=== PATIENT | male | born 1985 | race Hispanic/Latino ===

== ENCOUNTER 2019-01-11 08:49 | Emergency (ER) | payer OTHER, SELFPAY ==
[2019-01-11] MEDS ORDERED: KETOROLAC 30 MG/ML INJ ONE (09:15)
[2019-01-11] MEDS ORDERED: dexAMETHasone 10 MG/ML VIAL ONE (09:15)
[2019-01-11] MEDS ORDERED: METHOCARBAMOL 1,000 MG in NA CHLORIDE 0.9% 100 ML IV ONE (09:30)
--- NOTE | 2019-01-11 10:31 | ER ---
Nurse's Notes [facility] Name: Lorenzo Daniel Age: 33 yrs Sex: Male : 1985 Arrival Date: 01/11/2019 Time: 08:50 Bed 5 Private MD: Diagnosis: Low back pain Presentation: 01/11 08:50 Presenting complaint: Patient states: L low back pain x 1 week. Became worse when ss patient was getting out of car at work this morning. Transition of care: patient was not received from another setting of care. Onset of symptoms was January 14, 2019. Risk Assessment: Do you want to hurt yourself or someone else? Patient reports no desire to harm self or others. Initial Sepsis Screen: Does the patient meet any 2 criteria? No. Patient's initial sepsis screen is negative. Does the patient have a suspected source of infection? No. Patient's initial sepsis screen is negative. Care prior to arrival: None. 08:50 Acuity: EZEKIEL 4 08:50 Method Of Arrival: EMS: [facility] [place] Historical: - Allergies: 08:52 No Known Allergies; ss - Home Meds: 08:52 None [Active]; ss - PMHx: 08:52 None; ss - PSHx: 08:52 None; ss - Immunization history:: Adult Immunizations up to date. - Social history:: Smoking status: Patient/guardian denies using tobacco. - Ebola Screening: : Patient denies exposure to infectious person Patient denies travel to an Ebola-affected area in the 21 days before illness onset. Screenin:38 Abuse screen: Denies threats or abuse. Denies injuries from another. Nutritional jl7 screening: No deficits noted. Tuberculosis screening: No symptoms or risk factors identified. Fall Risk IV access (20 points). Total Narvaez Fall Scale indicates No Risk (0-24 pts). Assessment: 09:00 General: Appears in no apparent distress. uncomfortable, Behavior is calm, cooperative, jl7 appropriate for age. Pain: Complains of pain in left low back Pain radiates to left leg Pain currently is 1 out of 10 on a pain scale. at worst was 10 out of 10 on a pain scale. Quality of pain is described as sharp, shooting, Pain began suddenly, Is continuous. Neuro: Level of Consciousness is awake, alert, obeys commands, Oriented to person, place, time, situation. Cardiovascular: Patient's skin is warm and dry. Respiratory: Airway is patent Respiratory effort is even, unlabored, Respiratory pattern is regular, symmetrical. Derm: Skin is pink, warm \T\ dry. Musculoskeletal: Range of motion: limited in left hip. 10:00 Reassessment: Patient appears in no apparent distress at this time. Patient and/or jl7 family updated on plan of care and expected duration. Pain level reassessed. Patient is alert, oriented x 3, equal unlabored respirations, skin warm/dry/pink. Patient states feeling better. Patient states symptoms have improved. Vital Signs: 08:52 BP 117 / 87; Pulse 84; Resp 16; Temp 98.5(TE); Pulse Ox 100% on R/A; Weight 81.65 kg; ss Height 6 ft. 2 in. (187.96 cm); Pain 2/10; 09:38 BP 128 / 85; Pulse 78; Resp 16 S; Pulse Ox 100% on R/A; jl7 10:53 BP 124 / 82; Pulse 77; Resp 16 S; Pulse Ox 99% on R/A; jl7 08:52 Body Mass Index 23.11 (81.65 kg, 187.96 cm) ED Course: 08:50 Patient arrived in ED. ss 08:51 Triage completed. ss 08:52 Prateek Brush PA is PHCP. jr8 08:52 Rigoberto Quick MD is Attending Physician. jr8 08:52 Arm band placed on right wrist. ss 08:53 Aquilino Bernal MD is Attending Physician. jr8 09:04 Kizzy Gorman RN is Primary Nurse. jl7 09:38 Patient has correct armband on for positive identification. Bed in low position. Call jl7 light in reach. Side rails up X 1. Pulse ox on. NIBP on. 09:38 Inserted saline lock: 22 gauge in right antecubital area, using aseptic technique. jl7 10:53 No provider procedures requiring assistance completed. IV discontinued, intact, ss bleeding controlled, No redness/swelling at site. Pressure dressing applied. Administered Medications: 09:23 Drug: TORadol - Ketorolac 15 mg Route: IVP; Site: right antecubital; jl7 09:45 Follow up: Response: No adverse reaction; Pain is decreased 7 09:25 Drug: Decadron - Dexamethasone 10 mg Route: IVP; Site: right antecubital; 7 09:45 Follow up: Response: No adverse reaction 7 09:35 Drug: Robaxin 1 grams Route: IVPB; Infused Over: 1 hrs; Site: right antecubital; 7 10:35 Follow up: Response: No adverse reaction; Pain is decreased; IV Status: Completed jl7 infusion Outcome: 10:31 Discharge ordered by . shannon 10:54 Discharged to home ambulatory. jl 10:54 Condition: stable 10:54 Discharge instructions given to patient, Instructed on discharge instructions, follow up and referral plans. medication usage, Demonstrated understanding of instructions, follow-up care, medications, Prescriptions given X 3. 10:55 Patient left the ED. Signatures: Jacy Nguyen RN RN ss Prateek Brush PA PA jr8 Kizzy Gorman RN RN jl7 Corrections: (The following items were deleted from the chart) 09:07 08:52 BP 178 / 1; Pulse 84bpm; Resp 16bpm; Pulse Ox 100% RA; Temp 98.5F Temporal; 81.65 ss kg; Height 6 ft. 2 in.; BMI: 23.1; Pain 2/10; ss
--- NOTE | 2019-01-11 10:32 | EDPHYS ---
Physician Documentation [facility] Name: Lorenzo Daniel Age: 33 yrs Sex: Male : 1985 Arrival Date: 01/11/2019 Time: 08:50 Bed 5 Private MD: ED Physician Aquilino Bernal HPI: 01/11 10:26 This 33 yrs old Male presents to ER via EMS with complaints of Low Back Pain. jr8 10:26 The patient presents with pain that is acute. The symptoms are located in the low back. jr8 The pain does not radiate. The problem was sustained while standing up out of car. Onset: The symptoms/episode began/occurred acutely, today. Modifying factors: The patient symptoms are alleviated by nothing, the patient symptoms are aggravated by any movement. Associated signs and symptoms: The patient has no apparent associated signs or symptoms. Severity of symptoms: At their worst the symptoms were moderate, in the emergency department the symptoms are unchanged. The patient has experienced a previous episode. The patient has not recently seen a physician. Patient stated that he had been dealing with low back pain for the past couple of days. Saw his chiropractor which was helping. Today he drove to work and then tried to get out of car but could not because the pain was to bad to stand up . Historical: - Allergies: 08:52 No Known Allergies; ss - Home Meds: 08:52 None [Active]; ss - PMHx: 08:52 None; ss - PSHx: 08:52 None; ss - Immunization history:: Adult Immunizations up to date. - Social history:: Smoking status: Patient/guardian denies using tobacco. - Ebola Screening: : Patient denies exposure to infectious person Patient denies travel to an Ebola-affected area in the 21 days before illness onset. ROS: 10:26 Constitutional: Negative for fever, chills, and weight loss. jr8 10:26 Back: Positive for pain at rest, pain with movement, Negative for radiated pain. 10:26 All other systems are negative. Exam: 10:26 Eyes: Pupils equal round and reactive to light, extra-ocular motions intact. Lids and jr8 lashes normal. Conjunctiva and sclera are non-icteric and not injected. Cornea within normal limits. Periorbital areas with no swelling, redness, or edema. ENT: Nares patent. No nasal discharge, no septal abnormalities noted. Tympanic membranes are normal and external auditory canals are clear. Oropharynx with no redness, swelling, or masses, exudates, or evidence of obstruction, uvula midline. Mucous membranes moist. Neck: Trachea midline, no thyromegaly or masses palpated, and no cervical lymphadenopathy. Supple, full range of motion without nuchal rigidity, or vertebral point tenderness. No Meningismus. Cardiovascular: Regular rate and rhythm with a normal S1 and S2. No gallops, murmurs, or rubs. Normal PMI, no JVD. No pulse deficits. Respiratory: Lungs have equal breath sounds bilaterally, clear to auscultation and percussion. No rales, rhonchi or wheezes noted. No increased work of breathing, no retractions or nasal flaring. Abdomen/GI: Soft, non-tender, with normal bowel sounds. No distension or tympany. No guarding or rebound. No evidence of tenderness throughout. Skin: Warm, dry with normal turgor. Normal color with no rashes, no lesions, and no evidence of cellulitis. MS/ Extremity: Pulses equal, no cyanosis. Neurovascular intact. Full, normal range of motion. Neuro: Awake and alert, GCS 15, oriented to person, place, time, and situation. Cranial nerves II-XII grossly intact. Motor strength 5/5 in all extremities. Sensory grossly intact. Cerebellar exam normal. Normal gait. 10:26 Back: pain, that is moderate, of the low back area, ROM is painful, normal spinal alignment noted, CVA tenderness, is absent, Straight leg raises: pain bilaterally. Vital Signs: 08:52 BP 117 / 87; Pulse 84; Resp 16; Temp 98.5(TE); Pulse Ox 100% on R/A; Weight 81.65 kg; ss Height 6 ft. 2 in. (187.96 cm); Pain 210; 09:38 BP 128 / 85; Pulse 78; Resp 16 S; Pulse Ox 100% on R/A; jl7 10:53 BP 124 / 82; Pulse 77; Resp 16 S; Pulse Ox 99% on R/A; jl7 08:52 Body Mass Index 23.11 (81.65 kg, 187.96 cm) MDM: 09:01 Patient medically screened. jr8 10:26 Data reviewed: vital signs, nurses notes, and as a result, I will discharge patient. jr8 Data interpreted: Pulse oximetry: on room air is 100 %. Interpretation: normal. Counseling: I had a detailed discussion with the patient and/or guardian regarding: the historical points, exam findings, and any diagnostic results supporting the discharge/admit diagnosis, the need for outpatient follow up, a family practitioner, to return to the emergency department if symptoms worsen or persist or if there are any questions or concerns that arise at home. Response to treatment: the patient's symptoms have markedly improved after treatment. ED course: Patient able to get up an walk around. Feels much better. Will d/c home . 01/11 09:05 Order name: IV; Complete Time: 09:41 jr8 Administered Medications: 09:23 Drug: TORadol - Ketorolac 15 mg Route: IVP; Site: right antecubital; 7 09:45 Follow up: Response: No adverse reaction; Pain is decreased jl7 09:25 Drug: Decadron - Dexamethasone 10 mg Route: IVP; Site: right antecubital; jl7 09:45 Follow up: Response: No adverse reaction jl7 09:35 Drug: Robaxin 1 grams Route: IVPB; Infused Over: 1 hrs; Site: right antecubital; jl7 10:35 Follow up: Response: No adverse reaction; Pain is decreased; IV Status: Completed jl7 infusion Disposition: 11:45 Co-signature as Attending Physician, Aquilino Bernal MD. ma2 Disposition: 01/11/19 10:31 Discharged to Home. Impression: Low back pain. - Condition is Stable. - Discharge Instructions: Back Pain, Adult, Musculoskeletal Pain, Heat Therapy. - Prescriptions for Mobic 7.5 mg Oral Tablet - take 1 tablet by ORAL route once daily take with food; 20 tablet. Robaxin 500 mg Oral Tablet - take 2 tablet by ORAL route every 6 hours As needed; 40 tablet. Medrol (Juan) 4 mg Oral Tablets, Dose Pack - take 1 tablet by ORAL route as directed - follow package instructions; 1 packet. - Medication Reconciliation Form, Thank You Letter, Antibiotic Education, Prescription Opioid Use form. - Follow up: Private Physician; When: 5 - 6 days; Reason: Recheck today's complaints, Continuance of care, Re-evaluation by your physician. - Problem is new. - Symptoms have improved. Signatures: Jacy Nguyen, RN RN Prateek Reyes PA PA jr8 Kizzy Gorman RN RN jl7 Aquilino Bernal MD MD ma2 Corrections: (The following items were deleted from the chart) 10:29 10:26 Patient stated that he had been dealing with low back pain for the past couple of jr8 days. Saw his chiropractor which was helping. Today he drove to work and then tried to get out of car but could not because the pain was too bad to stand up . jr8 10:55 10:31 01/11/2019 10:31 Discharged to Home. Impression: Low back pain. Condition is jl7 Stable. Forms are Medication Reconciliation Form, Thank You Letter, Antibiotic Education, Prescription Opioid Use. Follow up: Private Physician; When: 5 - 6 days; Reason: Recheck today's complaints, Continuance of care, Re-evaluation by your physician. Problem is new. Symptoms have improved. jr8
[2019-01-11 10:59] VITALS: TEMP 98.5
[2019-01-11 11:02] VITALS: BP 124/82; O2SAT 99
== END 2019-01-11 10:55 | disposition home or self-care (01) ==
LOC: ER 08:49
DX: M54.5 Low back pain (principal)
CPT/HCPCS: 96365; 96375; 99284; J1100; J2800